=== PATIENT | male | born 1960 | race Caucasian/White ===

== ENCOUNTER 2018-11-23 00:40 | Emergency (ER) | payer OTHER ==
--- NOTE | 2018-11-23 01:11 | ED ---
Chest Pain HPI - General Chief Complaint: Chest Pain Stated Complaint: Chest Pain Time Seen by Provider: 11/23/18 00:46 Source: patient, family Mode of arrival: ambulatory Limitations: no limitations - History of Present Illness Initial Comments: This patient is a 58-year-old man who presents after he woke up with some chest pain greater on the right, as heavy sensation that had developed while he was sleeping. Patient states he does feel somewhat better after arrival the pain is not resolved. He had some associated shortness of breath. He has had a little bit of nonproductive cough. MD Complaint: chest pain Onset/Timin -: hour(s) Onset: awoke with symptoms Pain Location: right chest Pain Radiation: none Severity: moderate Quality: heaviness Consistency: constant Improves With: nothing Worsens With: nothing Anginal Symptoms: dyspnea Other Symptoms: cough Treatments Prior to Arrival: none - Related Data Home Medications Medication Instructions Recorded Confirmed Atorvastatin [Lipitor] 20 mg PO DAILY 12/08/15 12/14/15 Citalopram Hydrobromide [CeleXA] 20 mg PO DAILY 12/08/15 12/14/15 Empagliflozin/Linagliptin 1 each PO DAILY 12/08/15 12/14/15 [Glyxambi 10 mg-5 mg Tablet] Ubidecarenone [Co Q-10] 100 mg PO DAILY 12/08/15 12/14/15 Vitamin D3 (Unsure Of Dose) 1 tab PO DAILY 12/08/15 12/14/15 amLODIPine BESYLATE/BENAZEPRIL 1 cap PO DAILY 12/08/15 12/14/15 [amLODIPine BESYLATE/BENAZEPRIL 10-20 mg] metFORMIN HCL [Glucophage] 500 mg PO BID 12/08/15 12/14/15 Previous Rx's Medication Instructions Recorded HYDROcodone/APAP 7.5-325MG [[place] 1 tab PO Q4H PRN #35 tab 12/14/15 7.5-325] Azithromycin [Zithromax Z-pack] 250 mg PO DIRECTED #6 tab 11/23/18 Allergies Allergy/AdvReac Type Severity Reaction Status Date / Time No Known Allergies Allergy Verified 11/23/18 00:44 Review of Systems ROS Statement: Those systems with pertinent positive or pertinent negative responses have been documented in the HPI. ROS Other: All systems not noted in ROS Statement are negative. Constitutional: Denies: fever, chills Respiratory: Reports: cough, dyspnea Cardiovascular: Reports: chest pain. Denies: palpitations, edema, syncope Gastrointestinal: Denies: abdominal pain, nausea, vomiting, diarrhea Genitourinary: Denies: dysuria Musculoskeletal: Denies: back pain Skin: Denies: rash Neurological: Denies: headache, weakness, numbness EKG Findings - EKG Comments: EKG Findings:: There is minimal voltage criteria for LVH. - EKG Results: EKG: interpreted by ORAL, sinus rhythm (Rate approximately 83 bpm), normal axis, normal QRS, normal ST/T Past Medical History Past Medical History: Diabetes Mellitus, Hearing Disorder / Deafness, Hyperlipi demia, Hypertension, Osteoarthritis (OA), Sleep Apnea/CPAP/BIPAP Additional Past Medical History / Comment(s): RT KNEE BAD. LT ING HERNIA. USES CPAP. History of Any Multi-Drug Resistant Organisms: None Reported Past Surgical History: Joint Replacement, Orthopedic Surgery Additional Past Surgical History / Comment(s): SINUS SURG. TOTAL LT KNEE. ORIF RT ELBOW. RT KNEE SCOPE. Past Anesthesia/Blood Transfusion Reactions: Family History of Problems w/ Anesthesia Additional Past Anesthesia/Blood Transfusion Reaction / Comment(s): MOTHER HAS PONV. Past Psychological History: Anxiety Smoking Status: Never smoker Past Alcohol Use History: None Reported Past Drug Use History: None Reported - Past Family History Mother Family Medical History: Cancer General Exam Limitations: no limitations General appearance: alert, in no apparent distress Head exam: Present: atraumatic, normocephalic Eye exam: Present: normal appearance. Absent: scleral icterus, conjunctival injection ENT exam: Present: normal oropharynx Respiratory exam: Present: rales (Bilateral bases). Absent: respiratory distress, wheezes, rhonchi, stridor, chest wall tenderness, accessory muscle use, decreased breath sounds Cardiovascular Exam: Present: regular rate, normal rhythm, normal heart sounds. Absent: systolic murmur, diastolic murmur, rubs, gallop GI/Abdominal exam: Present: soft. Absent: distended, tenderness, guarding, rebound, mass Extremities exam: Present: normal inspection, normal capillary refill. Absent: pedal edema, calf tenderness Back exam: Present: normal inspection. Absent: CVA tenderness (R), CVA tenderness (L) Neurological exam: Present: alert Skin exam: Present: warm, dry, intact, normal color. Absent: rash Course Vital Signs 11/23/18 11/23/18 11/23/18 00:41 02:01 03:30 Temperature 98.4 F 99.0 F Pulse Rate 82 90 85 Respiratory 20 17 16 Rate Blood Pressure 145/83 128/85 115/75 O2 Sat by Pulse 96 95 96 Oximetry Chest Pain [facility] - [facility] Patient's 58-year-old man with some right-sided chest pain. The workup does reveal trace of right lower lobe infiltrate. I discussed treatment options with the patient and with this point with prefer to try an outpatient course of antibiotics. We did discuss appropriate follow-up as well as return parameters Disposition Clinical Impression: Pneumonia Disposition: HOME SELF-CARE Condition: Fair Instructions (If sedation given, give patient instructions): Pneumonia (ED) Prescriptions: Azithromycin [Zithromax Z-pack] 250 mg PO DIRECTED #6 tab Is patient prescribed a controlled substance at d/c from ED?: No Referrals: Fernando Khan MD [Primary Care Provider] - 1-2 days
[2018-11-23 01:41] LABS: Basophils % (A) 0 %; Eosinophils # (A) 0.2 k/uL (0-0.7); Eosinophils % (A) 2 %; HCT 46.8 % (39.0-53.0); HGB 15.8 gm/dL (13.0-17.5); Lymphocytes # (A) 0.7 k/uL (1.0-4.8); Lymphocytes % (A) 8 %; MCH 30.4 pg (25.0-35.0); MCHC 33.8 g/dL (31.0-37.0); Mean Platelet Volume 7.6; Monocytes # (A) 0.4 k/uL (0-1.0); Monocytes % (A) 5 %; Neutrophils # (A) 7.7 k/uL (1.3-7.7); Neutrophils % (A) 84 %; Platelet Count 175 k/uL (150-450); RDW 13.4 % (11.5-15.5); WBC 9.2 k/uL (3.8-10.6)
[2018-11-23 01:51] LABS: ALT 27 U/L (21-72); AST 24 U/L (17-59); Albumin 4.2 g/dL (3.5-5.0); Alkaline Phosphatase 172 U/L (38-126); Amylase 89 U/L (30-110); Anion Gap 11 mmol/L; Blood Urea Nitrogen 26 mg/dL (9-20); Calcium 9.2 mg/dL (8.4-10.2); Carbon Dioxide 22 mmol/L (22-30); Chloride 105 mmol/L (98-107); Glucose 134 mg/dL (74-99); Lipase 457 U/L (23-300); Potassium 4.3 mmol/L (3.5-5.1); Sodium 138 mmol/L (137-145); Total Bilirubin 0.6 mg/dL (0.2-1.3); Total Protein 6.8 g/dL (6.3-8.2)
[2018-11-23 01:54] LABS: Partial Thromboplastin Time 24.9 sec (22.0-30.0); Prothrombin Time 10.5 sec (9.0-12.0)
[2018-11-23 01:56] LABS: D-Dimer 0.98 mg/L FEU (<0.60)
--- NOTE | 2018-11-23 02:16 | XR ---
EXAM: XR Chest, 2 Views CLINICAL HISTORY: ITS.REASON XR Reason: Chest Pain TECHNIQUE: Frontal and lateral views of the chest. COMPARISON: 12/11/15. FINDINGS: Lungs: Mild lower lung atelectasis or infiltrate. Pleural space: No significant pleural effusion or pneumothorax. Heart: Unremarkable. Mediastinum: Slightly prominent mediastinal silhouette, query ectatic/tortuous aorta or other etiologies. Bones/joints: No acute fracture. IMPRESSION: 1. Mild lower lung atelectasis or infiltrate. 2. Slightly prominent mediastinal silhouette, query ectatic/tortuous aorta or other etiologies.
--- NOTE | 2018-11-23 02:48 | CT ---
EXAM: CT Angiography Chest With Intravenous Contrast CLINICAL HISTORY: ITS.REASON CT Reason: Pain TECHNIQUE: Axial computed tomographic angiography images of the chest with intravenous contrast using pulmonary embolism protocol. CTDI is 12 mGy and DLP is 449.5 mGy-cm. This CT exam was performed using one or more of the following dose reduction techniques: automated exposure control, adjustment of the mA and/or kV according to patient size, and/or use of iterative reconstruction technique. MIP reconstructed images were created and reviewed. COMPARISON: No relevant prior studies available. FINDINGS: Pulmonary arteries: No large central PE. Evaluation limited by bolus timing and motion artifact. Aorta: No evidence of aortic dissection. Lungs: Patchy bilateral atelectasis/infiltrates, more prominent at the bases. Scattered nodular densities, the largest measures 13 mm inthe right lung (image [id number]). Mild peribronchial thickening. Pleural space: No significant effusion. No pneumothorax. Heart: Unremarkable. Mediastinum: Mild esophageal wall thickening. Bones/joints: Degenerative changes of the bilateral shoulders. Disc protrusion/disc osteophyte complex at T6-7 and T9-10. Soft tissues: Unremarkable as visualized. Lymph nodes: Small mediastinal and hilar lymph nodes. Spleen: Splenomegaly. Stomach and bowel: Mild gastric wall thickening or underdistention. IMPRESSION: 1. No evidence of aortic dissection. 2. Patchy bilateral atelectasis/infiltrates, more prominent at the bases. Correlate clinically for inflammatory/infectious process. 3. Scattered pulmonary nodular densities. Consider followup imaging to ensure stability/resolution. 4. Mild esophageal wall thickening. Correlate clinically for esophagitis.
[2018-11-23] MEDS ORDERED: AZITHROMYCIN 500 MG TAB PO STA (02:56)
[2018-11-23 03:37] VITALS: BP 115/75; PULSE 85; RESP 16; TEMP 99
== END 2018-11-23 03:35 | disposition home or self-care (01) ==
LOC: EC 00:40
DX: J18.9 Pneumonia, unspecified organism (principal); E11.9 Type 2 diabetes mellitus without complications; H91.90 Unspecified hearing loss, unspecified ear; E78.5 Hyperlipidemia, unspecified; I10 Essential (primary) hypertension; M19.90 Unspecified osteoarthritis, unspecified site; G47.30 Sleep apnea, unspecified; Z99.89 Dependence on other enabling machines and devices; F41.9 Anxiety disorder, unspecified; Z79.84 Long term (current) use of oral hypoglycemic drugs; Z79.899 Other long term (current) drug therapy; Z96.652 Presence of left artificial knee joint
CPT/HCPCS: 36415; 93005; 85379; 80053; 82150; 83690; 83735; 84484; 85025; 85610; 85730; 71046; 71275; 99285; Q9967